=== PATIENT | female | born 1995 | race Caucasian/White ===

== ENCOUNTER 2018-02-02 10:34 | Emergency (ER) | payer OTHER ==
[2018-02-02 10:40] VITALS: BP 148/88; PULSE 85; TEMP 97.8; BMI 28.3
[2018-02-02] MEDS ORDERED: DEXAMETHASONE LIQUID 0.5 MG/5 ML 240 ML BULK BOTTLE PO ONE (12:30)
[2018-02-02] MEDS ORDERED: DEXAMETHASONE SOD PHOSPHATE 10 MG/1 ML VIAL ONE (12:32)
--- NOTE | 2018-02-02 12:34 | PDOC ---
History of Present Illness - General Chief Complaint: Rash Stated Complaint: RASH Time Seen by Provider: 02/02/18 11:37 - History of Present Illness Initial Comments: 02/02/18 12:31 22-year-old female without comorbidities presents for evaluation of rash times about one week. Her rashes associated with itching. She has no other associated symptoms. Past History - Past Medical History Allergies/Adverse Reactions: Allergies Allergy/AdvReac Type Severity Reaction Status Date / Time No Known Allergies Allergy Verified 02/02/18 10:37 Home Medications: Ambulatory Orders NK [No Known Home Medication] 02/02/18 COPD: No Other medical history: eclampsia - Suicide/Smoking/Psychosocial Hx Smoking History: Never smoked Review of Systems - Review of Systems Integumentary: Yes: Rash All Other Systems: Reviewed and Negative *Physical Exam - Vital Signs Last Vital Signs Temp Pulse Resp BP Pulse Ox 97.8 F 85 16 148/88 99 02/02/18 10:38 02/02/18 10:38 02/02/18 10:38 02/02/18 10:38 02/02/18 10:38 - Physical Exam Comments: HEAD: NC/AT EYES: Conjuntiva clear Ears: Canals and TM's normal NOSE: No d/c THROAT: Moist mucous membrances, oral pharanx clear, uvula midline NECK: Supple without adenopathy CARDIAC: S1 S2 LUNGS: CTA Full and Equal breath sounds ABDOMEN: Soft NT ND MS: Full ROM in all joints without edema NEUROLOGIC: No gross sensory or motor deficits, NVID SKIN: Normal color and temperature there is a scant maculopapular rash on bilateral legs and arms without indication of secondary infection 02/02/18 12:31 ED Treatment Course - ADDITIONAL ORDERS Additional order review: Laboratory Results 02/02/18 11:37 Urine HCG, Qual Negative Medical Decision Making - Medical Decision Making Patient states the Rash is itchy. I will treated with Decadron have her follow- up with dermatology she is unsure of the etiology of the rash 02/02/18 12:32 *DC/Admit/Observation/Transfer Diagnosis at time of Disposition: Rash - Discharge Dispostion Disposition: HOME Condition at time of disposition: Stable Decision to Admit order: No - Referrals Referrals: Brent Gee MD [Staff Physician] - Uzma Velasquez [Non Staff, Medical] - Ezekiel Godoy MD [Non Staff, Medical] - Samantha Hayes CRNA [Certified computer systems architect] - Keerthi Luke MD [Staff Physician] - Jeramie Aponte MD [Staff Physician] - Arsalan Tristan MD [Non Staff, Medical] - Mahad Mcdowell MD [Non Staff, Medical] - Barrington Peralta MD [Staff Physician] - Mk Fitzgerald MD [Staff Physician] - Gabriel Lopes MD [Non Staff, Medical] - Konrad Guzman MD [Non Staff, Medical] - Neri Patel MD [Staff Physician] - Eagle Bello MD [Non Staff, Medical] - Jo Carson MD [Certified computer systems architect] - - Patient Instructions Printed Discharge Instructions: DI for Rash Additional Instructions: The rash was treated in the emergency room with steroids. Please follow-up with your primary care provider as well as dermatology. I recommended multiple local supervisor electrolytic tinning. Return to the emergency room should symptoms worsen or go unresolved. He should not require any treatment on top of the steroids that you are given the emergency room if you do require some degree irrationally take Benadryl as directed. He should follow-up with dermatology in your primary care physician in the next 1-2 days for further evaluation and treatment options. - Post Discharge Activity
== END 2018-02-02 12:36 | disposition home or self-care (01) ==
LOC: JERFT 10:34
DX: R21 Rash and other nonspecific skin eruption (principal)
CPT/HCPCS: 84703; 99281-25

== ENCOUNTER 2018-02-27 18:46 | Emergency (ER) | payer OTHER ==
[2018-02-27 19:19] VITALS: BP 147/77; PULSE 91; TEMP 98.8; BMI 28.3
--- NOTE | 2018-02-27 19:26 | PDOC ---
History of Present Illness - General Chief Complaint: Rash Stated Complaint: Vaginal Bleeding Time Seen by Provider: 02/27/18 19:25 History Source: Patient Exam Limitations: No Limitations - History of Present Illness Initial Comments: 02/27/18 19:26 22 yr female with rash to total body for one month since getting a [facility] with same symptoms. Rash is intensly itchy using OTC creams no relief. 02/27/18 19:33 Past History - Past Medical History Allergies/Adverse Reactions: Allergies Allergy/AdvReac Type Severity Reaction Status Date / Time No Known Allergies Allergy Verified 02/02/18 10:37 Home Medications: Ambulatory Orders Permethrin 5% Topical Cream [Elimite -] 1 applic TP ONCE #2 tube 02/27/18 hydrOXYzine PAMOATE [Vistaril -] 25 mg PO TID PRN #30 capsule 02/27/18 COPD: No - Suicide/Smoking/Psychosocial Hx Smoking History: Never smoked Review of Systems - Review of Systems Able to Perform ROS?: Yes Is the patient limited Lebanese proficient: No Integumentary: Yes: Symptoms Reported, Pruritus, Rash *Physical Exam - Vital Signs Last Vital Signs Temp Pulse Resp BP Pulse Ox 98.8 F 91 H 18 147/77 100 02/27/18 19:16 02/27/18 19:16 02/27/18 19:16 02/27/18 19:16 02/27/18 19:16 - Physical Exam General Appearance: Yes: Nourished, Appropriately Dressed HEENT: positive: EOMI, SOLIS, Pharynx Normal Neck: positive: Supple Integumentary: positive: Rash (under breasts, wasitline, inner thighs nape of neck hands with scattered erythematous scabbed maculopaular in linear formations.) *DC/Admit/Observation/Transfer Diagnosis at time of Disposition: Scabies - Discharge Dispostion Disposition: HOME Condition at time of disposition: Good - Prescriptions Prescriptions: hydrOXYzine PAMOATE [Vistaril -] 25 mg PO TID PRN #30 capsule PRN Reason: itching Permethrin 5% Topical Cream [Elimite -] 1 applic TP ONCE #2 tube - Referrals Referrals: Caryl Cheng MD [Staff Physician] - - Patient Instructions Printed Discharge Instructions: DI for Scabies, Scabies Additional Instructions: wash all clothing towels sheets for you and your , and other members in the house in hot water use the shampoo/cream as directed follow with the glass cutting machine feeder for follow up if not improving. this can take a few weeks to improve Print Language: TANZANIAN - Post Discharge Activity
== END 2018-02-27 19:47 | disposition home or self-care (01) ==
LOC: JERFT 18:46
DX: B86 Scabies (principal)
CPT/HCPCS: 99281-25

== ENCOUNTER 2018-03-23 16:44 | Emergency (ER) | payer OTHER ==
[2018-03-23 17:04] VITALS: BP 148/86; PULSE 87; TEMP 98.4; BMI 27.4
--- NOTE | 2018-03-23 17:08 | PDOC ---
Rapid Medical Evaluation Chief Complaint: Rash Time Seen by Provider: 03/23/18 17:00 Medical Evaluation: Allergies Allergy/AdvReac Type Severity Reaction Status Date / Time No Known Allergies Allergy Verified 02/02/18 10:37 Vital Signs Temp Pulse Resp BP Pulse Ox 98.4 F 87 18 148/86 100 03/23/18 17:01 03/23/18 17:01 03/23/18 17:01 03/23/18 17:01 03/23/18 17:01 03/23/18 17:04 I have performed a brief in-person evaluation of this patient. The patient presents with a chief complaint of:Pruritic rash x 5 months, seen in ED 01/29 and given decadron which did not help per pt. States she came back to ED several times for rash but based on records, no other ED visit for rash. Told to see derm but has not yet done so. States she continues to itch and now bleeding from sites when she scratches areas Pertinent physical exam findings:Unremarkable I have ordered the following:nothing The patient will proceed to the ED for further evaluation Discharge Disposition - Diagnosis Dermatitis - Discharge Dispostion Condition at time of disposition: Stable - Referrals - Patient Instructions - Post Discharge Activity
--- NOTE | 2018-03-23 17:54 | PDOC ---
History of Present Illness - General Chief Complaint: Rash Stated Complaint: PAIN Time Seen by Provider: 03/23/18 17:00 - History of Present Illness Initial Comments: 03/23/18 17:52 22-year-old female without comorbidities presents for evaluation of rash which really has never gone away and she never followed up with dermatology. Past History - Past Medical History Allergies/Adverse Reactions: Allergies Allergy/AdvReac Type Severity Reaction Status Date / Time No Known Allergies Allergy Verified 03/23/18 17:27 Home Medications: Ambulatory Orders Permethrin 5% Topical Cream [Elimite -] 1 applic TP ONCE #1 tube 03/23/18 COPD: No Dialysis: No Kidney Stones: No Seizures: No - Surgical History GI Surgery: No - Immunization History Immunization Up to Date: No - Suicide/Smoking/Psychosocial Hx Smoking History: Never smoked Have you smoked in the past 12 months: No Information on smoking cessation initiated: No Hx Alcohol Use: No Drug/Substance Use Hx: No Review of Systems - Review of Systems Integumentary: Yes: Pruritus, Rash *Physical Exam - Vital Signs Last Vital Signs Temp Pulse Resp BP Pulse Ox 98.4 F 87 18 148/86 100 03/23/18 17:01 03/23/18 17:01 03/23/18 17:01 03/23/18 17:01 03/23/18 17:01 - Physical Exam Comments: 03/23/18 17:53 HEAD: NC/AT EYES: Conjuntiva clear Ears: Canals and TM's normal NOSE: No d/c THROAT: Moist mucous membrances, oral pharanx clear, uvula midline NECK: Supple without adenopathy CARDIAC: S1 S2 LUNGS: CTA Full and Equal breath sounds ABDOMEN: Soft NT ND MS: Full ROM in all joints without edema NEUROLOGIC: No gross sensory or motor deficits, NVID SKIN: Normal color and temperature there is diffuse maculopapular rash with interdigital involvement without indication of secondary infection Moderate Sedation - Procedure Monitoring Vital Signs: Procedure Monitoring Vital Signs Temperature 98.4 F 03/23/18 17:01 Pulse Rate 87 03/23/18 17:01 Respiratory Rate 18 03/23/18 17:01 Blood Pressure 148/86 03/23/18 17:01 O2 Sat by Pulse Oximetry (%) 100 03/23/18 17:01 *DC/Admit/Observation/Transfer Diagnosis at time of Disposition: Dermatitis, Scabies - Discharge Dispostion Disposition: HOME Condition at time of disposition: Stable Decision to Admit order: No - Prescriptions Prescriptions: Permethrin 5% Topical Cream [Elimite -] 1 applic TP ONCE #1 tube - Referrals Referrals: Titi Bryan [Non Staff, Medical] - Felipe Morrow MD [Non Staff, Medical] - Doe Bustos MD [Non Staff, Medical] - Ian Bustillo [Staff Physician] - Verito Wallace MD [Non Staff, Medical] - Kota Brumfield MD [Non Staff, Medical] - Soren Oviedo MD [Non Staff, Medical] - Janet Ozuna MD [Non Staff, Medical] - Xavier Tran MD [Non Staff, Medical] - Ihsan Dutta MD [Non Staff, Medical] - Konrad Ghotra MD [Non Staff, Medical] - - Patient Instructions Printed Discharge Instructions: Scabies, DI for Scabies Additional Instructions: Return to the emergency room should symptoms worsen or go unresolved follow-up with dermatology in 2-3 days for further evaluation and treatment options and use the medication as directed - Post Discharge Activity
== END 2018-03-23 17:56 | disposition home or self-care (01) ==
LOC: JERFT 16:44
DX: B86 Scabies (principal); L30.9 Dermatitis, unspecified
CPT/HCPCS: 99281-25

== ENCOUNTER 2019-04-21 10:03 | Emergency (ER) | payer OTHER ==
[2019-04-21 10:13] VITALS: BP 157/89; PULSE 110; TEMP 99.4; BMI 26.5
[2019-04-21] MEDS ORDERED: IBUPROFEN 600 MG TABLET (FP) PO ONE ×2 (11:16→11:22)
--- NOTE | 2019-04-21 11:19 | PDOC ---
History of Present Illness - General Chief Complaint: Cold Symptoms Stated Complaint: HEAD/EAR/THROAT Time Seen by Provider: 04/21/19 10:21 History Source: Patient Exam Limitations: No Limitations - History of Present Illness Initial Comments: 04/21/19 11:15 Patient is a 24-year-old female with no past medical history who presents to the ED with complaint of body aches, cough, sore throat, ear pain and subjective fevers for the last 2 days. She denies any ill contacts. She has been taking Mucinex and Tylenol with little relief. She does admit to getting the flu shot 1 month ago. Past History - Past Medical History Allergies/Adverse Reactions: Allergies Allergy/AdvReac Type Severity Reaction Status Date / Time No Known Allergies Allergy Verified 04/21/19 10:10 Home Medications: Ambulatory Orders Acetaminophen [Tylenol -] 500 mg PO Q6H 04/21/19 Guaifenesin Dm [Mucinex Dm -] 2 each PO BID 04/21/19 Ibuprofen [Motrin -] 600 mg PO TID PRN 7 Days #21 tablet 04/21/19 Oseltamivir Phosphate [Tamiflu] 75 mg PO BID 5 Days #10 capsule 04/21/19 COPD: No Dialysis: No Kidney Stones: No Seizures: No - Surgical History GI Surgery: No - Immunization History Immunization Up to Date: No - Psycho Social/Smoking Cessation Hx Smoking History: Never smoked Have you smoked in the past 12 months: No Information on smoking cessation initiated: No Hx Alcohol Use: No Drug/Substance Use Hx: No Review of Systems - Review of Systems Comments:: 04/21/19 11:16 - Review of Systems Able to Perform ROS?: Yes Constitutional: No: Night Sweats, Weakness; Positive Fever, Chills, Loss of Appetite HEENTM: No: Eye Pain, Vision changes, Throat Swelling, Mouth Pain, Difficulty Swallowing; Positive throat pain, Positive ear pain Respiratory: No: Shortness of Breath, Wheezing; Positive: cough, Sputum Production Cardiac (ROS): No: Chest Pain, Chest Tightness, Palpitations, Irregular Heart Beat, Edema ABD/GI: No: Nausea, Vomiting, Abdominal Pain, Diarrhea : No Dysuria, No Hematuria, No Frequency, No Urgency, No Vaginal Discharge/ Pain Musculoskeletal: No: Back Pain, Joint Pain, Muscle Weakness, Neck Pain; Positive : muscle aches Integumentary: No: Lesions, Rash Neurological: No: Headache, Numbness, Tingling, Weakness, Speech Difficulties *Physical Exam - Vital Signs Last Vital Signs Temp Pulse Resp BP Pulse Ox 99.4 F 110 H 19 157/89 98 04/21/19 10:10 04/21/19 10:10 04/21/19 10:10 04/21/19 10:10 04/21/19 10:10 - Physical Exam 04/21/19 11:18 - Physical Exam General Appearance: Nourished, Appropriately Dressed, No Distress HEENT: EOMI, Normal Voice, TMs Normal, + Pharyngeal Erythema, + Nasal Congestion , + Rhinorrhea, Hearing Grossly Normal, No TM Bulging. No Muffled/Hoarse voice , No Tonsillar Exudate, No Tonsillar Erythema, No TM Dullness, No TM Erythema Neck: Supple, + Lymphadenopathy (R), + Lymphadenopathy (L), No Rigidity, No Decreased range of motion Respiratory/Chest: Lungs Clear, Normal Breath Sounds. No Respiratory Distress, No Accessory Muscle Use Cardiovascular: Regular Rhythm, Regular Rate, S1, S2 Gastrointestinal/Abdominal: Normal Bowel Sounds, Soft. Non-tender, No Guarding , No Rebound, No Rigidity Musculoskeletal: Normal Inspection. No Decreased Range of Motion Extremity: Normal Capillary Refill, Normal Inspection Integumentary: Normal Color, Dry. No Rash Neurologic: four roll calender operator II-XII NML intact, Fully Oriented, Alert, Normal Mood/Affect, Normal Response ED Treatment Course - ADDITIONAL ORDERS Additional order review: 04/21/19 11:54 Laboratory Tests 04/21/19 11:06 Influenza A (Rapid) Negative Influenza B (Rapid) Positive A Medical Decision Making - Medical Decision Making 04/21/19 11:54 The patient has been made aware that she is influenza B positive. Since her symptoms just started 2 days ago, we will send Tamiflu to her pharmacy. She has been encouraged to get plenty of rest, drink plenty fluids, take Tylenol or ibuprofen for body aches or pains. She should follow-up with her primary doctor within 1 to 2 days for repeat evaluation. If she does not have a primary doctor referral has been given to her. She should return to the ED for high fevers, shaking chills, profuse vomiting or any other worsening symptoms. Discharge - Discharge Information Problems reviewed: Yes Clinical Impression/Diagnosis: Influenza B Condition: Stable Disposition: HOME - Additional Discharge Information Prescriptions: Ibuprofen [Motrin -] 600 mg PO TID PRN 7 Days #21 tablet PRN Reason: Fever Oseltamivir Phosphate [Tamiflu] 75 mg PO BID 5 Days #10 capsule - Follow up/Referral Referrals: Ayden Cottrell MD [Primary Care Provider] - - Patient Discharge Instructions Patient Printed Discharge Instructions: DI for Influenza -- Adult Print Language: [id number] - Post Discharge Activity Work/Back to School Note: Back to Work
== END 2019-04-21 12:50 | disposition home or self-care (01) ==
LOC: JERFT 10:03
DX: J10.1 Influenza due to other identified influenza virus with other respiratory manifestations (principal)
CPT/HCPCS: 87804; 99282-25

== ENCOUNTER 2020-03-09 14:32 | Emergency (ER) | payer OTHER ==
[2020-03-09 14:37] VITALS: BP 132/85; PULSE 93; TEMP 97.8; BMI 24.7
[2020-03-09] MEDS ORDERED: IBUPROFEN 400 MG TABLET (FP) PO ONE ×2 (15:01)
== END 2020-03-09 15:22 | disposition home or self-care (01) ==
LOC: JERFT 14:32
PROC: 0JQ10ZZ Repair Face Subcutaneous Tissue and Fascia, Open Approach (ICD-10-PCS; principal; 2020-03-09)
DX: S01.81XA Laceration without foreign body of other part of head, initial encounter (principal)
CPT/HCPCS: 99284-25

== ENCOUNTER 2020-12-13 18:48 | Emergency (ER) | payer OTHER ==
[2020-12-13 19:26] VITALS: BP 149/98; PULSE 116; TEMP 98.3; BMI 22.7
[2020-12-13] MEDS ORDERED: CEPHALEXIN MONOHYDRATE 500 MG CAPSULE (UD) PO ONE (20:25)
[2020-12-13] MEDS ORDERED: SULFAMETHOXAZOLE/TRIMETHOPRIM 800MG/160MG D.S. TABLET PO ONE (20:25)
[2020-12-13] MEDS ORDERED: SULFAMETHOXAZOLE/TRIMETHOPRIM 800MG/160MG D.S. TABLET ONE (20:51)
[2020-12-13] MEDS ORDERED: CEPHALEXIN MONOHYDRATE 500 MG CAPSULE (UD) ONE (20:51)
== END 2020-12-13 22:05 | disposition home or self-care (01) ==
LOC: JER 18:48
DX: S80.811A Abrasion, right lower leg, initial encounter (principal); S80.812A Abrasion, left lower leg, initial encounter; S00.81XA Abrasion of other part of head, initial encounter; S40.811A Abrasion of right upper arm, initial encounter; V28.0XXA Motorcycle driver injured in noncollision transport accident in nontraffic accident, initial encounter
CPT/HCPCS: 99283-25

== ENCOUNTER 2020-12-15 08:04 | Emergency (ER) | payer OTHER ==
[2020-12-15 08:20] VITALS: BP 140/82; PULSE 95; TEMP 98; BMI 23.7
== END 2020-12-15 08:50 | disposition home or self-care (01) ==
LOC: JER 08:04
DX: Z48.00 Encounter for change or removal of nonsurgical wound dressing (principal)
CPT/HCPCS: 99281-25

== ENCOUNTER 2021-11-20 18:06 | Emergency (ER) | payer OTHER ==
[2021-11-20 18:18] VITALS: BP 127/83; PULSE 90; RESP 18; TEMP 99.3; BMI 26.5
[2021-11-20] MEDS ORDERED: KETOROLAC TROMETHAMINE 30 MG/1 ML VIAL IM ONE (21:50)
[2021-11-20] MEDS ORDERED: KETOROLAC TROMETHAMINE 30 MG/1 ML VIAL ONE (21:59)
== END 2021-11-20 23:05 | disposition home or self-care (01) ==
LOC: JER 18:06
PROC: 3E0233Z Introduction of Anti-inflammatory into Muscle, Percutaneous Approach (ICD-10-PCS; principal; 2021-11-20)
DX: N64.4 Mastodynia (principal)
CPT/HCPCS: 84703; 93005; 93010; 99284-25

== ENCOUNTER → 2022-02-18 | Day surgery (SDC) | payer OTHER ==
[~2022-02-18] MED LIST: DEXAMETHASONE SOD PHOSPHATE 4 MG/1 ML VIAL ONE; MIDAZOLAM HCL 2 MG/2 ML SINGLE DOSE VIAL ONE; ONDANSETRON 4 MG/2 ML VIAL ONE; PROPOFOL 20 ML ONE
== END | disposition home or self-care (01) ==
LOC: JRADUS-SUR 10:14
PROVIDERS: ATTEND Surgery Surgical Oncology
PROC: BH40ZZZ Ultrasonography of Right Breast (ICD-10-PCS; principal; 2022-02-18)
DX: N63.10 Unspecified lump in the right breast, unspecified quadrant (principal)
CPT/HCPCS: 19285; 19286; A4648; 19281

== ENCOUNTER 2022-02-20 04:09 | Day surgery (SDC) | payer OTHER ==
[2022-02-18 10:50] VITALS: BMI 24.5
[2022-02-20] MEDS ORDERED: LIDOCAINE HCL 0.5%, 5 MG/ML (50mL SDVIAL) ONE (15:58)
[2022-02-20] MEDS ORDERED: BUPIVACAINE HCL/PF 0.25% (2.5MG/ML) 10 ML VIAL IJ ONE (16:25)
[2022-02-20] MEDS ORDERED: LIDOCAINE HCL 0.5%, 5 MG/1 ML (50mL MDV) NR ONE (16:25)
[2022-02-20] MEDS ORDERED: ONDANSETRON 4 MG/2 ML VIAL IVPUSH PRN (17:11)
[2022-02-20] MEDS ORDERED: ACETAMINOPHEN 1000 MG/100 ML BAG IVPB ONE (17:11)
[2022-02-20] MEDS ORDERED: LACTATED RINGERS SOLUTION 1,000 ML IV SCH (17:15)
[2022-02-20] MEDS ORDERED: ACETAMINOPHEN INJECTION 100 ML IVPB ONE (17:28)
[2022-02-20 18:49] VITALS: RESP 20; TEMP 97.1
[2022-02-20 18:52] VITALS: BP 135/85; PULSE 82
== END 2022-02-20 18:53 | disposition home or self-care (01) ==
LOC: JASU-SURG 04:09
PROVIDERS: ATTEND Surgery Surgical Oncology
PROC: 0HBT0ZX Excision of Right Breast, Open Approach, Diagnostic (ICD-10-PCS; principal; 2022-02-20 15:30)
DX: D24.1 Benign neoplasm of right breast (principal)
CPT/HCPCS: 76098-TC-FY; 81025; 88307-TC; 94760

== ENCOUNTER 2022-07-03 11:16 | Inpatient (IN) | payer OTHER ==
[2022-07-03] MEDS ORDERED: ACETAMINOPHEN 1000 MG/100 ML BAG IVPB ONE (12:41)
[2022-07-03] MEDS ORDERED: ACETAMINOPHEN INJECTION 100 ML IVPB ONE (12:52)
[2022-07-03 13:06] LABS: BASO % 0.6 % (0-2.0); EOS % 1.2 % (0-4.5); HEMATOCRIT 34.6 % (32.4-45.2); HEMOGLOBIN 10.9 GM/dL (10.7-15.3); LYMPH % 32.9 % (8-40); MCH 25.7 pg (25.7-33.7); MCHC 31.6 g/dl (32.0-36.0); MEAN CELL VOLUME 81.4 fl (80-96); MEAN PLT VOLUME 9.3 fl (7.5-11.1); MONO % 8.8 % (3.8-10.2); NEUT % 56.5 % (42.8-82.8); PLATELET COUNT 380 10^3/uL (134-434); RBC 4.25 M/mm3 (3.60-5.2); RDW 16.1 % (11.6-15.6); WHITE BLOOD COUNT 6.1 K/mm3 (4.0-10.0)
[2022-07-03 13:10] LABS: INR 1.1 (0.83-1.09); PROTHROMBIN TIME (PATIENT) 12.7 SEC (9.7-13.0)
[2022-07-03 13:13] LABS: ACTIVATED PTT 30.8 SECONDS (25.2-36.5)
[2022-07-03 13:19] LABS: CHLORIDE 105 mmol/L (98-107); SODIUM 137 mmol/L (136-145)
[2022-07-03 13:20] LABS: ALBUMIN 3.5 g/dl (3.4-5.0); CALCIUM 8.6 mg/dL (8.5-10.1)
[2022-07-03 13:21] LABS: ANION GAP 5 MMOL/L (8-16); BLOOD UREA NITROGEN 6.3 mg/dL (7-18); CO2 27 mmol/L (21-32); GLUCOSE,RANDOM 69 mg/dL (74-106)
[2022-07-03 13:23] LABS: CREATININE 0.6 mg/dL (0.55-1.3)
[2022-07-03 13:24] LABS: SGOT/AST 17 U/L (15-37); SGPT/ALT 19 U/L (13-61)
[2022-07-03 13:26] LABS: BILIRUBIN,TOTAL 0.7 mg/dL (0.2-1); TOT PROT 6.5 g/dl (6.4-8.2)
[2022-07-03 13:27] LABS: ALK PHOS 74 U/L (45-117)
[2022-07-03] MEDS ORDERED: ACETAMINOPHEN 325 MG TABLET (FP) PO PRN (20:36)
[2022-07-03] MEDS: LABETALOL HCL 100 MG TABLET (FP) PO SCH (22:31)
[2022-07-04 00:20] VITALS: BMI 21.0
[2022-07-04 08:15] LABS: BASO % 0.4 % (0-2.0); HEMOGLOBIN 9.5 GM/dL (10.7-15.3); MCH 26.6 pg (25.7-33.7); MCHC 32.9 g/dl (32.0-36.0); MEAN CELL VOLUME 80.7 fl (80-96); MONO % 7.7 % (3.8-10.2); NEUT % 53.9 % (42.8-82.8); PLATELET COUNT 308 10^3/uL (134-434); RBC 3.59 M/mm3 (3.60-5.2); RDW 15.8 % (11.6-15.6); WHITE BLOOD COUNT 5.7 K/mm3 (4.0-10.0)
[2022-07-04 08:36] LABS: ALBUMIN 3.1 g/dl (3.4-5.0); CALCIUM 8.3 mg/dL (8.5-10.1)
[2022-07-04 08:39] LABS: CREATININE 0.7 mg/dL (0.55-1.3); PHOSPHOROUS 3.7 mg/dL (2.5-4.9)
[2022-07-04 08:40] LABS: TOT PROT 5.9 g/dl (6.4-8.2)
[2022-07-04 08:41] LABS: BILIRUBIN,TOTAL 0.5 mg/dL (0.2-1)
[2022-07-04 08:55] LABS: BLOOD UREA NITROGEN 6.4 mg/dL (7-18)
[2022-07-04] MEDS: LABETALOL HCL 100 MG TABLET (FP) PO SCH ×2 (09:32→21:26)
[2022-07-04] MEDS: FERROUS SO4 325 MG TABLET (FP) PO SCH (09:32)
[2022-07-04] MEDS: amLODIPine BESYLATE 5 MG TABLET (FP) PO SCH (09:32)
[2022-07-04] MEDS: ENOXAPARIN NA (PORCINE) 40 MG/0.4 ML DISP.SYRIN SQ SCH (09:33)
[2022-07-04 12:26] LABS: N-TERMINAL BNP 106.9 pg/ml (5-125)
[2022-07-04] MEDS ORDERED: LIDOCAINE VISCOUS 2% ORAL/TOP 15 ML UNIT-DOSE CUP ONE (14:48)
[2022-07-04] MEDS ORDERED: ONDANSETRON 4 MG/2 ML VIAL IVPUSH PRN (16:33)
[2022-07-04] MEDS ORDERED: LACTATED RINGERS SOLUTION 1,000 ML IV SCH (16:45)
[2022-07-04 20:26] VITALS: RESP 18
[2022-07-05] MEDS: FERROUS SO4 325 MG TABLET (FP) PO SCH (09:19)
[2022-07-05] MEDS: ENOXAPARIN NA (PORCINE) 40 MG/0.4 ML DISP.SYRIN SQ SCH (09:19)
[2022-07-05] MEDS: LABETALOL HCL 100 MG TABLET (FP) PO SCH (09:19)
[2022-07-05] MEDS: amLODIPine BESYLATE 5 MG TABLET (FP) PO SCH (09:19)
[2022-07-05 11:05] LABS: BASO % 0.4 % (0-2.0); EOS % 1.9 % (0-4.5); HEMATOCRIT 27.9 % (32.4-45.2); HEMOGLOBIN 9.1 GM/dL (10.7-15.3); LYMPH % 32.2 % (8-40); MCH 26.3 pg (25.7-33.7); MCHC 32.6 g/dl (32.0-36.0); MEAN CELL VOLUME 80.7 fl (80-96); MEAN PLT VOLUME 9.8 fl (7.5-11.1); MONO % 9.3 % (3.8-10.2); NEUT % 56.2 % (42.8-82.8); PLATELET COUNT 296 10^3/uL (134-434); RBC 3.46 M/mm3 (3.60-5.2); RDW 16.3 % (11.6-15.6); WHITE BLOOD COUNT 5.9 K/mm3 (4.0-10.0)
[2022-07-05 13:04] LABS: EPI CELLS 34 /uL (0-25.1); HYALINE CASTS 3 /uL (0-3.1); URINE APPEARANCE CLEAR; URINE BACTERIA 1304 /uL (0-1359); URINE BILIRUBIN NEGATIVE (NEGATIVE); URINE COLOR YELLOW; URINE GLUCOSE (UA) NEGATIVE (NEGATIVE); URINE KETONE NEGATIVE (NEGATIVE); URINE LEUK ESTERASE TRACE (NEGATIVE); URINE NITRITE NEGATIVE (NEGATIVE); URINE PROTEIN NEGATIVE (NEGATIVE); URINE RBC 13 /uL (0-23.9); URINE UROBILINOGEN 0.2 mg/dL (0.2-1.0); URINE WBC 39 /uL (0-25.8)
[2022-07-05 13:47] VITALS: BP 131/65; PULSE 98; TEMP 98.8
[2022-07-05 17:08] LABS: CYCLIC CITRULLINE PEPTIDE AB 2 units (0-19)
[2022-07-08 16:10] LABS: ATYPICAL pANCA <1:20 titer (Neg:<1:20); C-ANCA <1:20 titer (Neg:<1:20)
== END 2022-07-05 17:57 | disposition home or self-care (01) | DRG 351 ==
LOC: JER 11:16 → JERBED 17:56 → OBSVTOIN 20:36 → J4W 21:07
PROVIDERS: ADMIT Internal Medicine; ATTEND Family Medicine
PROC: B246ZZ4 Ultrasonography of Right and Left Heart, Transesophageal (ICD-10-PCS; principal; 2022-07-04 16:00)
DX: M79.7 Fibromyalgia (principal); R07.89 Other chest pain; D50.9 Iron deficiency anemia, unspecified; I10 Essential (primary) hypertension; I08.1 Rheumatic disorders of both mitral and tricuspid valves; L65.9 Nonscarring hair loss, unspecified; M94.0 Chondrocostal junction syndrome [Tietze]
CPT/HCPCS: 0241U-QW; 36415; 71046-TC-FY; 71275-TC; 80053; 80061; 81003; 82550; 82728; 83520; 83540; 83550; 83735; 83880; 83970; 84100; 84443; 84484; 84703; 85025; 85610; 85730; 86038; 86140; 86200; 86256; 86850; 86900; 86901; 93005; 93010; 93312; 93325; 94760; 99285-25; G0378; Q9967

== ENCOUNTER 2022-10-06 22:17 | Observation (INO) | payer OTHER ==
[2022-10-06 22:24] VITALS: BMI 24.1
[2022-10-06] MEDS ORDERED: SODIUM CHLORIDE 0.9% 500 ML INFUS.BAG IV ONE (22:46)
[2022-10-06] MEDS ORDERED: ACETAMINOPHEN 1000 MG/100 ML BAG IVPB ONE (22:46)
[2022-10-06] MEDS ORDERED: ACETAMINOPHEN INJECTION 100 ML IVPB ONE (23:05)
[2022-10-07] MEDS ORDERED: FAMOTIDINE 20 MG/50 ML IVPB 20 MG/50 ML MG IVPB ONE ×2 (00:27→00:31)
[2022-10-07 00:40] LABS: BASO % 0.2 % (0-2.0); HEMATOCRIT 34.7 % (32.4-45.2); HEMOGLOBIN 10.9 GM/dL (10.7-15.3); LYMPH % 17.5 % (8-40); MCH 25.4 pg (25.7-33.7); MCHC 31.4 g/dl (32.0-36.0); MEAN CELL VOLUME 81.1 fl (80-96); MEAN PLT VOLUME 9.3 fl (7.5-11.1); NEUT % 72.3 % (42.8-82.8); PLATELET COUNT 338 10^3/uL (134-434); RBC 4.28 M/mm3 (3.60-5.2); RDW 17.8 % (11.6-15.6); WHITE BLOOD COUNT 9.2 K/mm3 (4.0-10.0)
[2022-10-07 00:59] LABS: POTASSIUM 3.5 mmol/L (3.5-5.1)
[2022-10-07 01:00] LABS: CALCIUM 9.5 mg/dL (8.5-10.1)
[2022-10-07 01:01] LABS: ALBUMIN 3.5 g/dl (3.4-5.0); BLOOD UREA NITROGEN 8.3 mg/dL (7-18); MAGNESIUM 1.6 mg/dL (1.8-2.4)
[2022-10-07 01:04] LABS: CREATININE 0.7 mg/dL (0.55-1.3)
[2022-10-07] MEDS ORDERED: MAGNESIUM SULF 50% (8.12 MEQ/2 ML-1 GM VIAL) IVPB ONE (01:05)
[2022-10-07 01:06] LABS: BILIRUBIN,TOTAL 0.7 mg/dL (0.2-1); TOT PROT 6.7 g/dl (6.4-8.2)
[2022-10-07] MEDS ORDERED: POTASSIUM CHLORIDE ORAL LIQUID 20 MEQ/15 ML PO ONE (01:07)
[2022-10-07] MEDS ORDERED: MAGNESIUM SULFATE IN WATER 2 GM/50 ML IVPB IVPB ONE (01:14)
[2022-10-07] MEDS ORDERED: POTASSIUM CHLORIDE ORAL LIQUID 20 MEQ/15 ML ONE (01:15)
[2022-10-07] MEDS ORDERED: morphine CARPU-JECT 2 MG/1 ML DISP.SYRIN IVPUSH ONE (01:23)
[2022-10-07] MEDS ORDERED: SENNOSIDES 8.6MG TABLET (FP) PO PRN (06:08)
[2022-10-07] MEDS ORDERED: ACETAMINOPHEN 1000 MG/100 ML BAG IVPB PRN (06:13)
[2022-10-07] MEDS ORDERED: ONDANSETRON 4 MG/2 ML VIAL IVPUSH PRN (06:15)
[2022-10-07] MEDS: SODIUM CHLORIDE 0.9%/KCL 20 MEQ/1,000 ML INFUS.BAG IV SCH (07:03)
[2022-10-07] MEDS ORDERED: ONDANSETRON 4 MG/2 ML VIAL ONE (08:21)
[2022-10-07] MEDS ORDERED: amLODIPine BESYLATE 10 MG TABLET (FP) ONE (08:52)
[2022-10-07] MEDS ORDERED: MULTIVITAMINS (DAILY MVI) TABLET (FP) ONE (08:53)
[2022-10-07] MEDS ORDERED: GABAPENTIN 300 MG CAPSULE ONE (08:53)
[2022-10-07] MEDS: MULTIVITAMINS (DAILY MVI) TABLET (FP) PO SCH (09:11)
[2022-10-07] MEDS: amLODIPine BESYLATE 10 MG TABLET (FP) PO SCH (09:11)
[2022-10-07] MEDS: GABAPENTIN 300 MG CAPSULE PO SCH (09:11)
[2022-10-07 11:26] LABS: INR 1.2 (0.83-1.09); PROTHROMBIN TIME (PATIENT) 13.9 SEC (9.7-13.0)
[2022-10-07 11:29] LABS: ACTIVATED PTT 29.1 SECONDS (25.2-36.5)
[2022-10-07] MEDS: ENOXAPARIN NA (PORCINE) 40 MG/0.4 ML DISP.SYRIN SQ SCH (13:12)
[2022-10-07] MEDS: CEFTRIAXONE 1 GM in DEXTROSE 5%-WATER - 50 ML IVPB SCH ×2 (15:09→15:12)
[2022-10-08] MEDS: SODIUM CHLORIDE 0.9%/KCL 20 MEQ/1,000 ML INFUS.BAG IV SCH ×2 (03:33→15:38)
[2022-10-08 09:01] LABS: BASO % 0.4 % (0-2.0); EOS % 4.5 % (0-4.5); HEMATOCRIT 34.7 % (32.4-45.2); HEMOGLOBIN 10.9 GM/dL (10.7-15.3); MCH 25.6 pg (25.7-33.7); MCHC 31.5 g/dl (32.0-36.0); MEAN CELL VOLUME 81.2 fl (80-96); MONO % 11.5 % (3.8-10.2); NEUT % 45.6 % (42.8-82.8); PLATELET COUNT 370 10^3/uL (134-434); RBC 4.27 M/mm3 (3.60-5.2); RDW 17.9 % (11.6-15.6); WHITE BLOOD COUNT 5.4 K/mm3 (4.0-10.0)
[2022-10-08 09:05] LABS: INR 1.17 (0.83-1.09); PROTHROMBIN TIME (PATIENT) 13.6 SEC (9.7-13.0)
[2022-10-08 09:15] LABS: POTASSIUM 4.3 mmol/L (3.5-5.1); POTASSIUM 4.5 mmol/L (3.5-5.1)
[2022-10-08 09:16] LABS: CALCIUM 8.9 mg/dL (8.5-10.1)
[2022-10-08 09:17] LABS: BLOOD UREA NITROGEN 7.2 mg/dL (7-18); CALCIUM 8.9 mg/dL (8.5-10.1)
[2022-10-08 09:18] LABS: ALBUMIN 3.2 g/dl (3.4-5.0)
[2022-10-08 09:20] LABS: CREATININE 0.7 mg/dL (0.55-1.3)
[2022-10-08 09:21] LABS: CREATININE 0.7 mg/dL (0.55-1.3)
[2022-10-08 09:22] LABS: BILIRUBIN,TOTAL 0.6 mg/dL (0.2-1); TOT PROT 6.1 g/dl (6.4-8.2)
[2022-10-08] MEDS: MULTIVITAMINS (DAILY MVI) TABLET (FP) PO SCH (09:42)
[2022-10-08] MEDS: GABAPENTIN 300 MG CAPSULE PO SCH (09:43)
[2022-10-08] MEDS: ENOXAPARIN NA (PORCINE) 40 MG/0.4 ML DISP.SYRIN SQ SCH (09:43)
[2022-10-08] MEDS: amLODIPine BESYLATE 10 MG TABLET (FP) PO SCH ×2 (09:43→10:03)
[2022-10-08] MEDS ORDERED: LABETALOL HCL 100 MG TABLET (FP) PO SCH (14:00)
[2022-10-08] MEDS: DULoxetine HCL 20 MG CAPSULE.DR PO SCH (17:08)
[2022-10-09] MEDS: SODIUM CHLORIDE 0.9%/KCL 20 MEQ/1,000 ML INFUS.BAG IV SCH (07:10)
[2022-10-09 09:19] VITALS: BP 119/74; PULSE 77; RESP 16; TEMP 97.3
[2022-10-09] MEDS ORDERED: metroNIDAZOLE 250 MG TABLET PO ONE (10:00)
[2022-10-09] MEDS: MULTIVITAMINS (DAILY MVI) TABLET (FP) PO SCH (11:38)
[2022-10-09] MEDS: GABAPENTIN 300 MG CAPSULE PO SCH (11:38)
[2022-10-09] MEDS: amLODIPine BESYLATE 10 MG TABLET (FP) PO SCH (11:39)
[2022-10-09] MEDS: ENOXAPARIN NA (PORCINE) 40 MG/0.4 ML DISP.SYRIN SQ SCH (11:40)
[2022-10-09] MEDS: DULoxetine HCL 20 MG CAPSULE.DR PO SCH (11:45)
== END 2022-10-09 15:04 | disposition home or self-care (01) ==
LOC: JER 22:17 → JERBED 10-07 04:28 → J6S 10-07 14:37
PROVIDERS: ADMIT Internal Medicine; ATTEND Family Medicine
PROC: 3E033NZ Introduction of Analgesics, Hypnotics, Sedatives into Peripheral Vein, Percutaneous Approach (ICD-10-PCS; principal; 2022-10-07)
PROC: 3E023GC Introduction of Other Therapeutic Substance into Muscle, Percutaneous Approach (ICD-10-PCS; 2022-10-07)
PROC: 3E033GC Introduction of Other Therapeutic Substance into Peripheral Vein, Percutaneous Approach (ICD-10-PCS; 2022-10-07)
PROC: 3E033NZ Introduction of Analgesics, Hypnotics, Sedatives into Peripheral Vein, Percutaneous Approach (ICD-10-PCS; 2022-10-07)
PROC: 3E0337Z Introduction of Electrolytic and Water Balance Substance into Peripheral Vein, Percutaneous Approach (ICD-10-PCS; 2022-10-07)
DX: A09 Infectious gastroenteritis and colitis, unspecified (principal); K52.89 Other specified noninfective gastroenteritis and colitis; B34.9 Viral infection, unspecified; D50.9 Iron deficiency anemia, unspecified; R10.13 Epigastric pain; L65.9 Nonscarring hair loss, unspecified; N92.0 Excessive and frequent menstruation with regular cycle
CPT/HCPCS: 0241U-QW; 36415; 74177-TC; 80048; 80053; 81003; 83690; 83735; 84703; 85025; 85610; 85730; 86140; 86790; 87040; 87207; 93005; 93010; 96367; 96372; 96374; 96375; 96376; 99285-25; G0378

== ENCOUNTER 2023-01-28 11:24 | Observation (INO) | payer OTHER ==
[2023-01-28] MEDS ORDERED: METOCLOPRAMIDE HCL INJECTION 10 MG/2 ML VIAL IVPUSH ONE (13:11)
[2023-01-28 13:23] LABS: BASO % 0.7 % (0-2.0); EOS % 1.2 % (0-4.5); HEMATOCRIT 33.8 % (32.4-45.2); LYMPH % 32.2 % (8-40); MCH 26.1 pg (25.7-33.7); MCHC 32.5 g/dl (32.0-36.0); MEAN CELL VOLUME 80.3 fl (80-96); MEAN PLT VOLUME 8.9 fl (7.5-11.1); MONO % 8.7 % (3.8-10.2); NEUT % 57.2 % (42.8-82.8); PLATELET COUNT 366 10^3/uL (134-434); RDW 17.4 % (11.6-15.6); WHITE BLOOD COUNT 5.6 K/mm3 (4.0-10.0)
[2023-01-28 13:24] LABS: PH,URINE 8.5 (5.0-8.0); URINE APPEARANCE CLEAR; URINE BILIRUBIN NEGATIVE (NEGATIVE); URINE COLOR YELLOW; URINE GLUCOSE (UA) NEGATIVE (NEGATIVE); URINE KETONE NEGATIVE (NEGATIVE); URINE LEUK ESTERASE NEGATIVE (NEGATIVE); URINE NITRITE NEGATIVE (NEGATIVE); URINE PROTEIN NEGATIVE (NEGATIVE); URINE UROBILINOGEN 0.2 mg/dL (0.2-1.0)
[2023-01-28 13:33] LABS: INR 1.03 (0.83-1.09); PROTHROMBIN TIME (PATIENT) 11.9 SEC (9.7-13.0)
[2023-01-28 13:35] LABS: ACTIVATED PTT 28.2 SECONDS (25.2-36.5)
[2023-01-28 13:46] LABS: POTASSIUM 4.3 mmol/L (3.5-5.1)
[2023-01-28 13:52] LABS: ALBUMIN 3.6 g/dl (3.4-5.0); CALCIUM 8.6 mg/dL (8.5-10.1)
[2023-01-28 13:53] LABS: MAGNESIUM 1.9 mg/dL (1.8-2.4)
[2023-01-28 13:55] LABS: CREATININE 0.6 mg/dL (0.55-1.3)
[2023-01-28 13:56] LABS: BILIRUBIN,TOTAL 0.9 mg/dL (0.2-1); TOT PROT 6.8 g/dl (6.4-8.2)
[2023-01-28 14:01] LABS: N-TERMINAL BNP 111.6 pg/ml (5-125)
[2023-01-28] MEDS ORDERED: amLODIPine BESYLATE 5 MG TABLET (FP) PO ONE (14:02)
[2023-01-28] MEDS ORDERED: METOCLOPRAMIDE HCL INJECTION 10 MG/2 ML VIAL ONE (14:53)
[2023-01-28] MEDS ORDERED: amLODIPine BESYLATE 5 MG TABLET (FP) ONE (14:53)
[2023-01-28] MEDS ORDERED: ASPIRIN 81 MG CHEWABLE TABLETS PO ONE (16:05)
[2023-01-28] MEDS ORDERED: ASPIRIN 81 MG CHEWABLE TABLETS ONE (16:36)
[2023-01-28] MEDS ORDERED: hydrALAZINE HCL 20 MG/ML VIAL IVPUSH PRN (17:55)
[2023-01-28] MEDS ORDERED: NIFEdipine E.R 60 MG TABLET PO ONE ×2 (18:43→19:00)
[2023-01-28] MEDS: NIFEdipine E.R 60 MG TABLET PO SCH (19:00)
[2023-01-28] MEDS: ENOXAPARIN NA (PORCINE) 30 MG/0.3 ML DISP.SYRIN SQ SCH (19:00)
[2023-01-28] MEDS ORDERED: GABAPENTIN 300 MG CAPSULE ONE (21:12)
[2023-01-28] MEDS: GABAPENTIN 300 MG CAPSULE PO SCH (21:22)
[2023-01-28] MEDS ORDERED: DULoxetine HCL 30 MG CAPSULE.DR PO ONE (22:45)
[2023-01-28] MEDS ORDERED: LABETALOL HCL 100 MG TABLET (FP) ONE (22:51)
[2023-01-28] MEDS: LABETALOL HCL 100 MG TABLET (FP) PO SCH (22:56)
[2023-01-29] MEDS ORDERED: LABETALOL HCL 100 MG TABLET (FP) ONE ×2 (06:20→21:17)
[2023-01-29] MEDS: LABETALOL HCL 100 MG TABLET (FP) PO SCH ×3 (06:29→21:24)
[2023-01-29 07:34] LABS: BASO % 0.7 % (0-2.0); EOS % 2.4 % (0-4.5); HEMATOCRIT 32.3 % (32.4-45.2); HEMOGLOBIN 10.3 GM/dL (10.7-15.3); LYMPH % 42.1 % (8-40); MCHC 31.7 g/dl (32.0-36.0); MEAN CELL VOLUME 81.9 fl (80-96); MEAN PLT VOLUME 9.3 fl (7.5-11.1); MONO % 10.4 % (3.8-10.2); NEUT % 44.4 % (42.8-82.8); PLATELET COUNT 378 10^3/uL (134-434); RBC 3.95 M/mm3 (3.60-5.2); RDW 17.4 % (11.6-15.6); WHITE BLOOD COUNT 5.6 K/mm3 (4.0-10.0)
[2023-01-29 07:58] LABS: ALBUMIN 3.4 g/dl (3.4-5.0); CALCIUM 8.2 mg/dL (8.5-10.1)
[2023-01-29 07:59] LABS: BLOOD UREA NITROGEN 10.5 mg/dL (7-18); MAGNESIUM 1.8 mg/dL (1.8-2.4)
[2023-01-29 08:01] LABS: CREATININE 0.7 mg/dL (0.55-1.3)
[2023-01-29 08:02] LABS: BILIRUBIN,TOTAL 0.6 mg/dL (0.2-1)
[2023-01-29 08:03] LABS: TOT PROT 6.4 g/dl (6.4-8.2)
[2023-01-29] MEDS ORDERED: GABAPENTIN 300 MG CAPSULE ONE ×2 (10:03→21:17)
[2023-01-29] MEDS ORDERED: NIFEdipine E.R 60 MG TABLET PO ONE (10:04)
[2023-01-29] MEDS: NIFEdipine E.R 60 MG TABLET PO SCH (10:11)
[2023-01-29] MEDS: GABAPENTIN 300 MG CAPSULE PO SCH ×2 (10:11→21:24)
[2023-01-29] MEDS: DULoxetine HCL 20 MG CAPSULE.DR PO SCH (10:13)
[2023-01-29] MEDS: ENOXAPARIN NA (PORCINE) 30 MG/0.3 ML DISP.SYRIN SQ SCH (16:09)
[2023-01-29] MEDS ORDERED: ACETAMINOPHEN 325 MG TABLET (FP) ONE (17:52)
[2023-01-29] MEDS: ACETAMINOPHEN 325 MG TABLET (FP) PO PRN (18:05)
[2023-01-30] MEDS ORDERED: LABETALOL HCL 100 MG TABLET (FP) ONE (06:05)
[2023-01-30] MEDS: LABETALOL HCL 100 MG TABLET (FP) PO SCH ×2 (06:18→06:32)
[2023-01-30] MEDS: GABAPENTIN 300 MG CAPSULE PO SCH ×2 (09:02→22:32)
[2023-01-30] MEDS: DULoxetine HCL 20 MG CAPSULE.DR PO SCH (09:02)
[2023-01-30] MEDS: NIFEdipine E.R 60 MG TABLET PO SCH (09:02)
[2023-01-30 09:41] LABS: IRON SERUM 71 ug/dL (50-175)
[2023-01-30 09:42] LABS: TOTAL IRON BINDING CAPACITY 389 ug/dL (250-450)
[2023-01-30 13:13] LABS: BASO % 0.4 % (0-2.0); EOS % 1.2 % (0-4.5); HEMATOCRIT 31.4 % (32.4-45.2); HEMOGLOBIN 10.3 GM/dL (10.7-15.3); LYMPH % 25.6 % (8-40); MCH 26.4 pg (25.7-33.7); MEAN CELL VOLUME 80.2 fl (80-96); MEAN PLT VOLUME 8.8 fl (7.5-11.1); MONO % 9.5 % (3.8-10.2); NEUT % 63.3 % (42.8-82.8); PLATELET COUNT 374 10^3/uL (134-434); RBC 3.91 M/mm3 (3.60-5.2); RDW 17.5 % (11.6-15.6); WHITE BLOOD COUNT 6.1 K/mm3 (4.0-10.0)
[2023-01-30 14:43] VITALS: BMI 24.5
[2023-01-30] MEDS: ACETAMINOPHEN 325 MG TABLET (FP) PO PRN ×2 (15:06→22:34)
[2023-01-30] MEDS ORDERED: SODIUM CHLORIDE 0.45% 1,000 ML IV SCH (16:15)
[2023-01-30] MEDS: LABETALOL HCL 200 MG TABLET (FP) PO SCH (22:37)
[2023-01-31] MEDS: DULoxetine HCL 20 MG CAPSULE.DR PO SCH (09:12)
[2023-01-31] MEDS: GABAPENTIN 300 MG CAPSULE PO SCH (09:12)
[2023-01-31] MEDS: LABETALOL HCL 200 MG TABLET (FP) PO SCH (13:34)
[2023-01-31] MEDS: NIFEdipine E.R 60 MG TABLET PO SCH (13:34)
[2023-01-31 14:56] VITALS: BP 127/81; PULSE 94; RESP 18; TEMP 98.4
== END 2023-01-31 18:36 | disposition home or self-care (01) ==
LOC: JER 11:24 → UNDOADMOB 15:59 → JERBED 15:59 → OBSVTOIN 17:55 → INTOOBSV 17:55 → JERBED 01-29 09:36 → J4W 01-30 12:04
PROVIDERS: ADMIT Family Medicine; ATTEND Family Medicine
PROC: 3E033GC Introduction of Other Therapeutic Substance into Peripheral Vein, Percutaneous Approach (ICD-10-PCS; principal; 2023-01-29)
DX: R10.9 Unspecified abdominal pain (principal); R07.9 Chest pain, unspecified; N92.0 Excessive and frequent menstruation with regular cycle; I10 Essential (primary) hypertension; D50.9 Iron deficiency anemia, unspecified; I34.0 Nonrheumatic mitral (valve) insufficiency; I07.1 Rheumatic tricuspid insufficiency; L65.9 Nonscarring hair loss, unspecified; R53.1 Weakness; F41.9 Anxiety disorder, unspecified; R01.1 Cardiac murmur, unspecified
CPT/HCPCS: 36415; 71046-TC-FY; 80053; 81003; 82465; 82533; 83036; 83540; 83550; 83735; 83880; 84439; 84443; 84484; 84703; 85025; 85379; 85610; 85730; 86038; 86160; 86225; 86850; 86900; 86901; 87086; 93005; 93010; 93306-TC; 93351; 96374; 97116-GP; 97162-GP; 99285-25; G0378

== ENCOUNTER 2023-07-14 22:35 | Emergency (ER) | payer OTHER ==
[~2023-07-14 22:35] MED LIST changes: -DEXAMETHASONE SOD PHOSPHATE 4 MG/1 ML VIAL ONE; +LIDOCAINE PATCH REMOVAL MC SCH; -MIDAZOLAM HCL 2 MG/2 ML SINGLE DOSE VIAL ONE; -ONDANSETRON 4 MG/2 ML VIAL ONE; -PROPOFOL 20 ML ONE
[2023-07-14 22:42] VITALS: BP 169/94; PULSE 97; RESP 18; TEMP 97.8; BMI 28.1
[2023-07-15] MEDS ORDERED: METOCLOPRAMIDE HCL INJECTION 10 MG/2 ML VIAL ONE (00:08)
[2023-07-15] MEDS ORDERED: LIDOCAINE 4% PATCH TP ONE (00:08)
[2023-07-15] MEDS: METOCLOPRAMIDE HCL INJECTION 10 MG/2 ML VIAL IVPB ONE (00:28)
[2023-07-15] MEDS: LIDOCAINE 4% PATCH TP ONE (00:28)
[2023-07-15 00:31] LABS: BASO % 0.5 % (0-2.0); EOS % 2.7 % (0-4.5); HEMOGLOBIN 9.7 GM/dL (10.7-15.3); LYMPH % 38.4 % (8-40); MCH 25.1 pg (25.7-33.7); MCHC 31.3 g/dl (32.0-36.0); MEAN CELL VOLUME 80.1 fl (80-96); MEAN PLT VOLUME 9.2 fl (7.5-11.1); MONO % 9.3 % (3.8-10.2); NEUT % 49.1 % (42.8-82.8); PLATELET COUNT 355 10^3/uL (134-434); RBC 3.87 M/mm3 (3.60-5.2); RDW 17.4 % (11.6-15.6); WHITE BLOOD COUNT 7.3 K/mm3 (4.0-10.0)
[2023-07-15 00:50] LABS: CALCIUM 8.9 mg/dL (8.5-10.1); POTASSIUM 3.9 mmol/L (3.5-5.1)
[2023-07-15 00:51] LABS: ALBUMIN 3.6 g/dl (3.4-5.0); BLOOD UREA NITROGEN 15.6 mg/dL (7-18); MAGNESIUM 1.9 mg/dL (1.8-2.4)
[2023-07-15 00:55] LABS: CREATININE 0.8 mg/dL (0.55-1.3)
[2023-07-15 00:56] LABS: BILIRUBIN,TOTAL 0.5 mg/dL (0.2-1)
[2023-07-15 01:01] LABS: INR 0.95 (0.83-1.09)
[2023-07-15 01:03] LABS: ACTIVATED PTT 28.3 SECONDS (25.2-36.5)
== END 2023-07-15 01:21 | disposition home or self-care (01) ==
LOC: JER 22:35
PROC: 3E030GC Introduction of Other Therapeutic Substance into Peripheral Vein, Open Approach (ICD-10-PCS; principal; 2023-07-15)
DX: R07.9 Chest pain, unspecified (principal); R51.9 Headache, unspecified
CPT/HCPCS: 36415; 71046-TC-FY; 80053; 83735; 84484; 84703; 85025; 85379; 85610; 85730; 93005; 93010; 96374; 99285-25